=== PATIENT | female | born 1995 | race Caucasian/White ===

== ENCOUNTER → 2021-01-05 15:35 | Outpatient (CLI) | payer OTHER, SELFPAY ==
[2021-01-05] MEDS: COVID-19 VACC #1, MRNA(MOD) 100 MCG/0.5 ML VIAL IM (15:44)
== END ==
PROVIDERS: Visit Provider Internal Medicine
DX: Z23 Encounter for immunization (principal)
CPT/HCPCS: 0011A; 91301

== ENCOUNTER → 2021-02-02 15:37 | Outpatient (CLI) | payer OTHER, SELFPAY ==
[2021-02-02] MEDS: COVID-19 VACC #2, MRNA(MOD) 100 MCG/0.5 ML VIAL IM (15:42)
== END ==
PROVIDERS: Visit Provider Internal Medicine
DX: Z23 Encounter for immunization (principal)
CPT/HCPCS: 0012A; 91301